=== PATIENT | female | born 1980 | race African-American/Black ===

== ENCOUNTER 2023-10-08 00:01 | Emergency (ER) | payer MEDICAID ==
[~2023-10-08] VITALS: Ht 165.1 cm; Wt 64.0 kg
[2023-10-08 00:26] VITALS: TEMP 98.4; O2SAT 100
[2023-10-08] MEDS ORDERED: KETOROLAC 30MG/ML VIAL IM ONE (01:45)
[2023-10-08 02:51] LABS: BASOPHILS % 1.1 % (0.0-2.0); EOSINOPHILS % 2.5 % (0.0-5.0); HEMATOCRIT. 33.9 % (36.0-48.0); HEMOGLOBIN. 11.3 g/dL (12.0-16.0); LYMPHOCYTES % 53.4 % (20.0-50.0); MEAN CORPUSCULAR HGB CONC 33.4 g/dL (31.0-37.0); MEAN CORPUSCULAR VOLUME 96.1 fL (81.0-99.0); MEAN PLATELET VOLUME 6.6 fl (7.4-10.4); MONOCYTES % 7.6 % (2.0-8.0); NEUTROPHILS % 35.4 % (40.0-76.0); PLATELET 242 x1000/uL (130-400); RED BLOOD CELL COUNT 3.52 mill/uL (4.2-5.4); RED CELL DISTRIBUTION WIDTH 14.9 % (11.6-14.6); WHITE BLOOD COUNT 4.6 x1000/uL (4.5-11.0)
[2023-10-08] MEDS ORDERED: IBUP-2029 MT (02:58)
[2023-10-08] MEDS ORDERED: SULF1TAB48 MT (02:58)
[2023-10-08] MEDS ORDERED: AMOX1TAB16 MT (02:58)
[2023-10-08 03:06] LABS: ALANINE AMINOTRANSFERASE 12 IU/L (10-49); ALBUMIN 4.2 g/dL (3.2-4.8); ASPARTATE AMINOTRANSFERASE 29 IU/L (<34); BILIRUBIN TOTAL 0.3 mg/dL (0.1-1.0); CALCIUM 8.7 mg/dL (8.7-10.4); CARBON DIOXIDE 25 mEq/L (21-32); CHLORIDE 103 mEq/L (98-107); CREATININE 0.6 mg/dL (0.6-1.0); GLUCOSE 90 mg/dL (70-105); POTASSIUM 3.3 mEq/L (3.5-5.1); PROTEIN TOTAL 6.9 g/dL (6.0-8.3); SODIUM 137 mEq/L (136-145); UREA NITROGEN BLOOD 9 mg/dL (9-23)
[2023-10-08 03:19] LABS: HCG SCREEN NEGATIVE
[2023-10-08 03:30] VITALS: BP 122/73; PULSE 88; RESP 18
[2023-10-08] MEDS: KETOROLAC 30MG/ML VIAL IM NR (03:30)
== END 2023-10-08 03:59 | disposition home or self-care (01) ==
LOC: ER 00:01
DX: L03.115 Cellulitis of right lower limb (principal); Z98.890 Other specified postprocedural states
CPT/HCPCS: 99284; 80053; 84703; 85025; 36415; 73590; 96372; J1885

== ENCOUNTER 2024-02-16 05:06 | Emergency (ER) | payer MEDICAID, OTHER ==
[~2024-02-16] VITALS: Ht 165.1 cm; Wt 64.0 kg
[~2024-02-16 05:06] MED LIST: AMOX1TAB16 MT; IBUP-2029 MT; SULF1TAB48 MT
[2024-02-16 05:50] VITALS: O2SAT 99
[2024-02-16] MEDS: ACETAMINOPHEN 325MG TABLET PO ONE (06:15)
[2024-02-16] MEDS ORDERED: TOPUD PO (07:27)
[2024-02-16 07:50] VITALS: BP 129/76; PULSE 81; RESP 18; TEMP 98.4
== END 2024-02-16 08:17 | disposition home or self-care (01) ==
LOC: ER 05:06
DX: M25.551 Pain in right hip (principal); Z98.890 Other specified postprocedural states; Z79.899 Other long term (current) drug therapy
CPT/HCPCS: 73502; 99283

== ENCOUNTER 2024-03-31 14:30 | Emergency (ER) | payer OTHER ==
[~2024-03-31] VITALS: Ht 167.6 cm; Wt 75.0 kg
[~2024-03-31 14:30] MED LIST changes: +TOPUD PO
[2024-03-31 14:31] VITALS: O2SAT 98
[2024-03-31] MEDS: TETANUS, DIPHTHERIA, PERTUSSIS VAC/PF 0.5ML (>10YR OLD) IM ONE (15:37)
[2024-03-31] MEDS: HYDROCODONE/ACETAMINOPHEN 5/325MG TABLET PO ONE (15:39)
[2024-03-31] MEDS ORDERED: CYCL5TAB MT (16:27)
[2024-03-31] MEDS ORDERED: NAPR-681 MT (16:27)
[2024-03-31 16:28] VITALS: BP 134/85; PULSE 79; RESP 17; TEMP 37.05852; O2SAT 100
== END 2024-03-31 16:28 ==
LOC: ER 14:37
DX: S50.12XA Contusion of left forearm, initial encounter (principal); S09.8XXA Other specified injuries of head, initial encounter; M54.2 Cervicalgia; M25.551 Pain in right hip; Z98.890 Other specified postprocedural states; Z79.899 Other long term (current) drug therapy; V89.2XXA Person injured in unspecified motor-vehicle accident, traffic, initial encounter; Y93.89 Activity, other specified; Y92.89 Other specified places as the place of occurrence of the external cause; Y99.8 Other external cause status
CPT/HCPCS: 73502; 73110; 70450; 72125; 90715; 90471; 99285; Z7610